=== PATIENT | female | born 2000 | race African-American/Black ===

== ENCOUNTER 2023-08-08 08:43 | Emergency (ER) | payer OTHER, SELFPAY ==
[2023-08-08 08:51] VITALS: BP 125/83; PULSE 100; RESP 18; TEMP 36.7; O2SAT 100
--- NOTE | 2023-08-08 09:06 | ED.URI ---
HPI - URI/Sore Throat General Chief Complaint: Upper Respiratory Infection Stated Complaint: Cough/Sore Throat Time Seen by Provider: 08/08/23 09:06 Source: patient, RN notes reviewed and old records reviewed Mode of arrival: ambulatory Limitations: no limitations History of Present Illness HPI Narrative: 23 year old female who presents to [facility] care with complaints of sore throat for the past 2 days with cough. Patient reports that cough has become worse since yesterday and it make her chest hurt with pain going to her right shoulder blade. Patient has taken Ibuprofen for her symptoms with last dose yesterday evening. Patient denies any fevers, chills or sweats or any body aches at this time reports fever yesterday of 101F which resolved with Ibuprofen. MD elicited complaint: cough and sore throat Onset (ago): day(s) (2) Pain scale (0-10): 7 Able to tolerate fluids by mouth: Yes Treatments prior to arrival: ibuprofen Related Data Allergies Allergy/AdvReac Type Severity Reaction Status Date / Time azithromycin Allergy Mild RASH, Unverified 08/08/23 09:01 DIARRHEA Sulfa (Sulfonamide Allergy Mild RASH, Unverified 08/08/23 09:01 Antibiotics) DIARRHEA Review of Systems Review of Systems: CONSTITUTIONAL: Reports malaise, chills, sweats,states fever of 101F yesterday only EYES: Denies visual changes, redness, or discharge. ENT: Reports rhinorrhea, congestion, sinus pressure,no otalgia and positive for sore throat. CARDIOVASCULAR: Denies chest pain, palpitations, or edema.states chest hurts with cough only and pain goes to right shoulder blade RESPIRATORY: Reports cough.? Denies dyspnea. GASTROINTESTINAL: Denies abdominal pain, nausea, vomiting, diarrhea SKIN: Denies rash or itching. MUSCULOSKELETAL: Denies myalgia. NEUROLOGIC: Denies headache. All systems reviewed & are unremarkable except as noted in HPI and below PMFSH Past Medical History Medical History (Updated 08/09/23 @ 07:09 by Isa Guzman NP) Oli-Danlos syndrome Hypothyroidism Migraine Surgical History Surgical History (Updated 08/09/23 @ 07:06 by Isa Guzman NP) History of tonsillectomy Social History Social History (Updated 08/09/23 @ 07:08 by Isa Guzman NP) Smoking status: Never smoker Alcohol intake: current Alcohol use details: social Substance use type: does not use Living arrangements: with family Gender identity (if verbalized by the patient): Female Comments At time of signature, agree with nursing past medical, surgical, social and family history. There is no relevant family history pertinent to the presenting complaint Exam Narrative: GENERAL: Well-appearing, well-nourished, and in no acute distress. HEAD: Normocephalic EYES: PERRLA, conjunctivae clear ENT: Nares clear, turbinates edematous and erythematous, clear discharge. Mucous membranes moist. TM pearly chamorro with dull light reflex bilaterally; no tragal tenderness. Oropharynx erythematous without lesions. Tonsils not present and without exudate, no drooling, no hoarseness, no trismus, uvula midline. NECK: Supple. No lymphadenopathy CHEST: Clear to auscultation, breath sounds equal. No wheezing, rhonchi, rales, or stridor. No respiratory distress, speaks in full sentences.dry cough noted, SAO2 100% on room air HEART: Regular rate and rhythm. No murmur heard. SKIN: Warm, dry, no rash. NEURO: Alert and oriented x3. PSYCH: Normal mood and affect Course Course Emergency Course: Patient is aware of diagnosis, understands and agrees to treatment plan.? Anticipatory guidance given.? Patient agrees to follow-up as directed and is aware of reasons to seek care at the emergency department. Portions of this record may have been created with voice recognition software Level of Care: Express Care Visit Vital Signs Vital signs: Vital Signs Temperature 36.7 C 08/08/23 08:51 Pulse Rate 100 08/08/23 08:5
== END 2023-08-08 09:31 | disposition home or self-care (01) ==
PROVIDERS: Emergency Provider Registered Nurse; PCP Family Medicine
DX: J06.9 Acute upper respiratory infection, unspecified (principal); R05.1 Acute cough; Q79.60 Ehlers-Danlos syndrome, unspecified; E03.9 Hypothyroidism, unspecified
CPT/HCPCS: 87081; 87880; 99213; G0463